=== PATIENT | female | born 1990 | race Caucasian/White ===

== ENCOUNTER 2016-09-03 14:28 | Inpatient (IN) | payer OTHER ==
[2016-09-03 15:36] LABS: HEMOGLOBIN 13.1 gm/dl (12.3-15.3); RED BLOOD COUNT 4.53 M/UL (4.00-5.10); WHITE BLOOD COUNT 14.9 K/UL (4.5-11.0)
[2016-09-04 05:02] LABS: HEMOGLOBIN 10.8 gm/dl (12.3-15.3)
[2016-09-06] MEDS ORDERED: NORCO 5-325 TA1 EACH PO (09:45)
[2016-09-06] MEDS ORDERED: COLACE 100MG C100 MG PO (09:45)
[2016-09-06] MEDS ORDERED: IBUPROFEN600 MG PO (09:46)
== END 2016-09-06 12:25 | disposition home or self-care (01) | DRG 766 ==
LOC: OB 14:28
PROVIDERS: Obstetrics & Gynecology; ADMIT Obstetrics & Gynecology
PROC: 10D00Z1 Extraction of Products of Conception, Low, Open Approach (ICD-10-PCS; 2016-09-03)
PROC: 4A1H7CZ Monitoring of Products of Conception, Cardiac Rate, Via Natural or Artificial Opening (ICD-10-PCS; principal; 2016-09-03 22:20)
PROC: 10H07YZ Insertion of Other Device into Products of Conception, Via Natural or Artificial Opening (ICD-10-PCS; principal; 2016-09-03 22:20)
PROC: 10H073Z Insertion of Monitoring Electrode into Products of Conception, Via Natural or Artificial Opening (ICD-10-PCS; principal; 2016-09-03 22:20)
PROC: 3E0234Z Introduction of Serum, Toxoid and Vaccine into Muscle, Percutaneous Approach (ICD-10-PCS; 2016-09-04)
DX: O75.89 Other specified complications of labor and delivery (principal); O62.1 Secondary uterine inertia; O76 Abnormality in fetal heart rate and rhythm complicating labor and delivery; O65.1 Obstructed labor due to generally contracted pelvis; Z3A.40 40 weeks gestation of pregnancy; Z37.0 Single live birth; Z87.440 Personal history of urinary (tract) infections; L30.9 Dermatitis, unspecified; Z23 Encounter for immunization
CPT/HCPCS: 36415; 81001; 82800; 85014; 85018; 85025; C9113; J0690; J2400; J2590; J2765; J2795; J3010; J3105; J3430; J7050; J7120; Q2039